=== PATIENT | male | born 1955 ===

== ENCOUNTER 2023-11-07 06:37 | Day surgery (SDC) | payer OTHER ==
[2023-10-28 08:32] LABS: PH,URINE 5.5 (5.0-8.0); URINE APPEARANCE Clear; URINE BILIRRUBIN Negative (NEGATIVE); URINE BLOOD Negative; URINE COLOR Yellow; URINE GLUCOSE Negative (NEGATIVE); URINE LEUKOCYTE Negative; URINE NITRATE Negative; URINE PROTEIN Negative (NEGATIVE); URINE UROBILINOGEN 0.2 E.U./dl
[2023-10-28 08:33] LABS: HEMATOCRIT 40.4 % (39.0-48.0); MEAN CELL VOLUME 83.4 fL (80.0-100.00); MEAN CORPUSCULAR HGB CONC 34.8 g/dl (32.0-36.0); PLATELET COUNT 284 K/uL (150-450); RED BLOOD COUNT 4.85 M/uL (4.00-6.00); RED CELL DISTRIBUTION WIDTH 13.1 % (11.5-14.5); URINE BACTERIA 12.5 uL (0.0-1933); URINE EPITHELIAL CELLS 2.4 uL (0.0-38.8); URINE RBC 3.8 uL (0.0-20.8); URINE WBC 2.4 uL (0.0-23.2)
[2023-10-28 08:59] LABS: INR 1.04; PARTIAL THROMBOPLASTIN TIME 25.6 SECONDS (22.0-34.0); PROTHROMBIN TIME 10.9 SECONDS (9.0-11.5)
[2023-10-28 09:11] LABS: CALCIUM 9.6 mg/dL (8.5-10.1); CREATININE SERUM 0.96 mg/dL (0.70-1.30); GFR 77.89; POTASSIUM 4.43 mEq/L (3.5-5.1)
[~2023-11-07 06:37] MED LIST: FENOFIBRATE160 MG PO; LEVO-T100 MCG PO; METFORMIN HCL500 M3 PO; TAMS0.4C PO; VASOTEC2.5 MG PO; VYTORIN 10-401 EACH PO
[2023-11-07] MEDS ORDERED: CEFAZOLIN SODIUM 1,000 MG VIAL ONE (08:23)
[2023-11-07] MEDS ORDERED: BUPIVACAINE HCL/MPF 0.5% 30ML VIAL ONE (08:23)
[2023-11-07] MEDS ORDERED: LIDOCAINE HCL 1%/EPINEPHRINE 20ML VIAL IJ ONE (08:23)
[2023-11-07] MEDS ORDERED: SUGAMMADEX SODIUM 200 MG/2 ML VIAL IV ONE ×2 (09:59→10:00)
[2023-11-07] MEDS ORDERED: KETOROLAC TROMETHAMINE 30 MG VIAL IV ONE (10:00)
[2023-11-07] MEDS ORDERED: KETOROLAC TROMETHAMINE 30 MG VIAL ONE (10:00)
[2023-11-07] MEDS ORDERED: TRAMADOL HCL50 MG PO (13:14)
[2023-11-07] MEDS ORDERED: MIRALAX17 GM PO (13:14)
[2023-11-07] MEDS ORDERED: TYLENOL ARTHRI650 MG PO (13:14)
[2023-11-07] MEDS ORDERED: KETO10TA2 PO (13:14)
== END 2023-11-07 16:05 | disposition home or self-care (01) ==
LOC: CIR.AMB 06:37
PROVIDERS: ATTEND Surgery
DX: K40.90 Unilateral inguinal hernia, without obstruction or gangrene, not specified as recurrent (principal); K42.0 Umbilical hernia with obstruction, without gangrene; E11.9 Type 2 diabetes mellitus without complications; E03.9 Hypothyroidism, unspecified
CPT/HCPCS: 49650; 49592; C1781